=== PATIENT | female | born 1990 | race Caucasian/White ===

== ENCOUNTER 2016-08-01 02:30 | Emergency (ER) | payer BC, MEDICAID, OTHER ==
[2016-08-01] MEDS ORDERED: LORazepam 2 MG/ML Syringe ONE ×2 (02:43→03:30)
[2016-08-01] MEDS: LORazepam 2 MG/ML Syringe IVPUSH PRN ×3 (02:47→04:01)
[2016-08-01] MEDS ORDERED: Lactated Ringers 1,000 ML ONE ×3 (02:59→03:56)
[2016-08-01 03:07] LABS: CHLORIDE,CL 101 mEq/L (98-106); SODIUM,NA 138 mEq/L (136-145)
[2016-08-01] MEDS: cefTRIAXone 1 GM Vial ONE ×2 (03:10→05:33)
[2016-08-01] MEDS ORDERED: Acetaminophen 650 MG Supp ONE (03:12)
[2016-08-01] MEDS ORDERED: Vancomycin 1 GM SDV ONE (03:23)
[2016-08-01] MEDS ORDERED: Sodium Chloride 0.9% 250 ML ONE (03:24)
[2016-08-01] MEDS: Lactated Ringers 3,000 ML IV ONE ×3 (03:40→04:06)
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
[2016-08-01] MEDS ORDERED: Acetaminophen 650 MG Supp RECTAL ONE (05:29)
[2016-08-01 06:10] VITALS: BP 105/62
== END 2016-08-01 04:33 ==
LOC: CC.ED 02:30
DX: R41.82 Altered mental status, unspecified (principal); F19.929 Other psychoactive substance use, unspecified with intoxication, unspecified; R50.9 Fever, unspecified; R25.2 Cramp and spasm
CPT/HCPCS: 36415; 51702; 80053; 80305; 81001; 85027; 96365; 96375; 96376; 99291; 99292; A9270; J0696; J2060; J3370; J7050; J7120; 99285

== ENCOUNTER 2017-10-03 11:45 | Emergency (ER) | payer SELFPAY ==
[2017-10-03] MEDS ORDERED: Lactated Ringers 1,000 ML IV ONE (12:03)
[2017-10-03] MEDS ORDERED: Iopamidol 612 MG/ML 100 ML Bottle IVPUSH ONE (12:13)
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
[2017-10-03 12:39] LABS: CHLORIDE,CL 106 mEq/L (98-106); SODIUM,NA 146 mEq/L (136-145)
== END 2017-10-03 17:20 ==
LOC: CC.ED 11:45
DX: S30.0XXA Contusion of lower back and pelvis, initial encounter (principal); S90.812A Abrasion, left foot, initial encounter; S90.811A Abrasion, right foot, initial encounter; S70.312A Abrasion, left thigh, initial encounter; S70.311A Abrasion, right thigh, initial encounter; J45.909 Unspecified asthma, uncomplicated; L55.0 Sunburn of first degree; J39.8 Other specified diseases of upper respiratory tract; X58.XXXA Exposure to other specified factors, initial encounter; Z88.1 Allergy status to other antibiotic agents; Z88.8 Allergy status to other drugs, medicaments and biological substances
CPT/HCPCS: 70450; 71260; 72125; 74177; 80053; 80305-QW; 81001; 82150; 83605; 84703; 85025; 86618; 87040; 96360; 99285; J7120; Q9967